=== PATIENT | male | born 1995 | race Caucasian/White ===

== ENCOUNTER 2017-07-01 14:59 | Emergency (ER) | END 2017-07-01 22:06 | disposition home or self-care (01) ==

== ENCOUNTER 2017-07-06 20:30 | Emergency (ER) | END 2017-07-06 21:35 | disposition home or self-care (01) ==

== ENCOUNTER 2017-07-30 14:51 | Emergency (ER) | END 2017-07-30 15:47 | disposition home or self-care (01) ==

== ENCOUNTER 2018-03-16 19:08 | Emergency (ER) | payer MEDICAID, OTHER ==
[~2018-03-16] VITALS: Ht 167.6 cm; Wt 96.8 kg
[~2018-03-16 19:08] MED LIST: BENZ-6 PO; DOCU250C58 PO; HYDR-4011 PO; LEVE500T8 PO; OXYC10TA45 PO; SODI1TAB2 PO
[2018-03-16 19:17] VITALS: PULSE 70; RESP 18; Ht 167.6 cm; Wt 96.8 kg
[2018-03-16] MEDS ORDERED: MECL12.574 PO (22:40)
[2018-03-16 22:45] VITALS: BP 111/59
--- NOTE | 2018-03-18 00:17 | ERD ---
ER Documentation Chief Complaint Chief Complaint dizziness x 1 week. blood in stool/wiping 1x today HPI 23-year-old male with self-reported history of head injury 1 year ago presents with complaint of dizziness for the past week as well as one episode of blood in stool which occurred today. Patient states that he has had episodes of dizziness on and off since his head injury. These episodes self resolve. Describes the dizziness as feeling like the room is spinning and it is positional being exacerbated upon movement. Denies headache, numbness, tingling, weakness, vomiting, leg swelling. Patient states that the blood in his stool this morning was bright red. Denies having any other similar episodes. Denies abdominal pain, vomiting, lightheadedness, tachycardia. History of head trauma. Denies allergies. Denies medications. Denies surgeries. Denies alcohol, tobacco, drug use. Up to date on vaccines. ROS All systems reviewed and are negative except as per history of present illness. Medications Home Meds Active Scripts Meclizine Hcl* (Antivert*) 12.5 Mg Tab, 12.5 MG PO Q6H PRN for DIZZINESS, #20 TAB Prov:KYLIE JOYA 03/16/18 Benzonatate* (Tessalon Perle*) 100 Mg Capsule, 100 MG PO Q8H PRN for COUGH, #20 CAP Prov:LARISSA ZAMBRANO PA-C 07/30/17 Hydrocodone/Acetaminophen ([place] 5-325 Tablet) 1 Each Tablet, 1 TAB PO Q6H PRN for PAIN, #10 TAB Prov:KYLIE ROSAS PA-C 07/06/17 Reported Medications Sodium Chloride* (Sodium Chloride*) 1 Gm Tablet, 1 GM PO TID for 1 WEEK, TAB 07/01/17 Sodium Chloride* (Sodium Chloride*) 1 Gm Tablet, 2 GM PO TID for 1 WEEK, TAB 07/01/17 Sodium Chloride* (Sodium Chloride*) 1 Gm Tablet, 3 GM PO TID for 1 WEEK, TAB 07/01/17 Docusate Sodium* (Colace*) 250 Mg Capsule, 250 MG PO BID, #60 CAP 07/01/17 Oxycodone Hcl* (Oxycontin*) 10 Mg Tab.sr.12h, 5 MG PO Q12, TAB 07/01/17 Levetiracetam* (Levetiracetam*) 500 Mg Tablet, 500 MG PO Q12H, TAB 07/01/17 Allergies Allergies: Coded Allergies: No Known Allergy (Unverified , 07/01/17) PMhx/Soc Medical and Surgical Hx: pt denies Medical Hx, pt denies Surgical Hx History of Surgery: No Anesthesia Reaction: No Hx Neurological Disorder: Yes (TRAUMATIC BRAIN BLEED) Hx Respiratory Disorders: No Hx Cardiac Disorders: No Hx Psychiatric Problems: No Hx Miscellaneous Medical Probl: No Hx Alcohol Use: No Hx Substance Use: No Hx Tobacco Use: Yes (quit 1 year ago) Smoking Status: Former smoker FmHx Family History: diabetes Physical Exam Vitals Vital Signs Date Temp Pulse Resp B/P (MAP) Pulse Ox O2 O2 Flow FiO2 Time Delivery Rate 03/16/18 117/68 22:45 (84) 125/64 (84) 111/59 (76) 03/16/18 97.3 70 18 129/62 98 19:17 (84) Physical Exam General: Well developed, well nourished. No acute distress. Head: Atraumatic. No sinus tenderness to palpation. Eyes: Horizontal nystagmus noted. PERRLA. EOM's intact. No icterus, lesions, injection, or edema. Ears: Auricles nontender, with no erythema, lesions, or masses bilaterally. TMs pearly pickering with + cone of light and no bulging or fluid lines bilaterally. Auditory canal patent with no discharge or impaction bilaterally. Landmarks appreciated bilaterally. Heart: RR w/o murmur, rubs, or gallops. Lungs: Clear to auscultation bilaterally w/o wheezes, crackles, rhonchi. Symmetric rise and fall. Equal breath sounds. Abdomen: Soft, nontender, with no rigidity or guarding noted. No masses, lesions, or ecchymoses. Normoactive bowel sounds. No McBurney's point tenderness. Patient ambulatory. No tenderness to palpation in splenic area or splenomegaly. No CVA tenderness. No hemorrhoids or other rectal masses noted. Extremities: 5/5 strength and full ROM of upper and lower extremeties bilaterally. Distal sensation and pulses intact. Normal cap refill. No lower extremity edema or erythema. Neuro: CN II through XII intact. Rapid alternating movement intact. No cerebellar or gait deficits. Strength and sensation intact. Alert and oriented x3. Psych: Normal mood and affect. Procedures/MDM MDM: 23-year-old male with self-reported history of head injury 1 year ago presents with complaint of dizziness for the past week as well as one episode of blood in stool which occurred today. Patient states that he has had episodes of dizziness on and off since his head injury. These episodes self resolve. Describes the dizziness as feeling like the room is spinning and it is positional being exacerbated upon movement. Denies headache, numbness, tingling, weakness, vomiting, leg swelling. Patient states that the blood in his stool this morning was bright red. Denies having any other similar episodes. Denies abdominal pain, vomiting, lightheadedness, tachycardia. I have low suspicion for CVA, intracranial bleed, intracranial mass. History and physical exam was consistent with benign positional vertigo. Patient educated regarding Loi maneuver. Patient given Rx for meclizine. In addition I have low suspicion for upper GI bleed, shock, or symptomatic anemia. Patient discharged with strict ER precautions. Patient advised to follow up with PMD. All questions answered at discharge. Departure Diagnosis: Primary Impression: Dizziness Condition: Stable Patient Instructions: Inner Ear Problems: Causes of Dizziness (Vertigo), Benign Positional Vertigo Referrals: [facility] YOU HAVE RECEIVED A MEDICAL SCREENING EXAM AND THE RESULTS INDICATE THAT YOU DO NOT HAVE A CONDITION THAT REQUIRES URGENT TREATMENT IN THE EMERGENCY DEPARTMENT. FURTHER EVALUATION AND TREATMENT OF YOUR CONDITION CAN WAIT UNTIL YOU ARE SEEN IN YOUR DOCTORS OFFICE WITHIN THE NEXT 1-2 DAYS. IT IS YOUR RESPONSIBILITY TO MAKE AN APPOINTMENT FOR FOLOW-UP CARE. IF YOU HAVE A PRIMARY DOCTOR --you should call your primary doctor and schedule an appointment IF YOU DO NOT HAVE A PRIMARY DOCTOR YOU CAN CALL OUR PHYSICIAN REFERRAL HOTLINE AT IF YOU CAN NOT AFFORD TO SEE A PHYSICIAN YOU CAN CHOSE FROM THE FOLLOWING [facility] [address] [facility] [address] [facility] [address] [facility] [address] [facility] [address] [facility]. [address] Additional Instructions: FOLLOW UP WITH YOUR PRIMARY CARE PHYSICIAN TOMORROW.Return to this facility if you are not improving as expected. KYLIE JOYA Mar 18, 2018 00:17
== END 2018-03-16 23:00 | disposition home or self-care (01) ==
LOC: FTE 19:08
DX: R42 Dizziness and giddiness (principal); Z87.891 Personal history of nicotine dependence
CPT/HCPCS: 99282

== ENCOUNTER 2018-10-27 17:32 | Emergency (ER) | payer OTHER ==
[~2018-10-27] VITALS: Ht 167.6 cm; Wt 99.0 kg
[~2018-10-27 17:32] MED LIST changes: +ACYC15OI6 TOP; +ASPI-826 PO; +IBUP-1542 PO; +MECL12.574 PO
[2018-10-27 17:35] VITALS: Ht 167.6 cm; Wt 99.0 kg
[2018-10-27] MEDS ORDERED: KETOROLAC 30 MG INJ IV STA (18:42)
[2018-10-27] MEDS ORDERED: SOD CHLORIDE 0.9% 1,000 ML IV STA (18:42)
[2018-10-27] MEDS ORDERED: METOCLOPRAMIDE 10 MG INJ IV STA (18:42)
[2018-10-27] MEDS ORDERED: LIDOCAINE 1% (MPF) 5 ML VIAL INJ ONE (19:00)
[2018-10-27] MEDS ORDERED: CEFTRIAXONE 250 MG INJ IM ONE (19:00)
[2018-10-27] MEDS ORDERED: AZITHROMYCIN 500 MG TAB PO ONE (19:00)
[2018-10-27 20:00] VITALS: BP 112/60; PULSE 75; RESP 20
== END 2018-10-27 20:01 | disposition home or self-care (01) ==
LOC: FTE 17:32
DX: G44.209 Tension-type headache, unspecified, not intractable (principal); F17.210 Nicotine dependence, cigarettes, uncomplicated; R30.0 Dysuria; Z11.3 Encounter for screening for infections with a predominantly sexual mode of transmission; Z79.82 Long term (current) use of aspirin
CPT/HCPCS: 81001; 87086; 87591; 96361; 96372; 96374; 96375; J0696; J1885; J2765; J7030; Z7502; Z7610